=== PATIENT | male | born 1985 | race Caucasian/White ===

== ENCOUNTER 2016-08-30 12:51 | Emergency (ER) | payer MEDICAID ==
[~2016-08-30] VITALS: Ht 182.9 cm; Wt 88.5 kg
[2016-08-30 17:06] VITALS: BP 130/82
[2016-08-30] MEDS ORDERED: KETOROLAC TROMETH 60MG/2ML VIAL IM ONE (17:45)
== END 2016-08-30 18:23 | disposition home or self-care (01) ==
LOC: ER 12:55
DX: D49.6 Neoplasm of unspecified behavior of brain (principal)
CPT/HCPCS: 93926; 96372; 99284; J1885

== ENCOUNTER 2016-10-18 15:33 | Emergency (ER) | payer MEDICAID ==
[~2016-10-18] VITALS: Ht 182.9 cm; Wt 88.5 kg
[2016-10-18 16:15] VITALS: BP 120/82
== END 2016-10-18 17:01 | disposition home or self-care (01) ==
LOC: ER 15:35
DX: M25.861 Other specified joint disorders, right knee (principal)

== ENCOUNTER 2016-11-07 16:49 | Inpatient (IN) | payer MEDICAID ==
[~2016-11-07] VITALS: Ht 182.9 cm; Wt 86.6 kg
[2016-11-07 17:36] LABS: Basophils # (auto) 0 uL; Basophils % (auto) 0.5 % (0.0-2.0); Eosinophils # (auto) 0.1 uL; Eosinophils % (auto) 0.8 % (0.0-7.0); Hemoglobin 16.6 g/dL (13.5-17.5); Lymphocytes # (auto) 1.9 uL; Lymphocytes % (auto) 25.2 % (10.0-50.0); Mean Corpuscular Hemoglobin 30.6 pg (28.0-32.0); Mean Corpuscular Hgb Conc. 33.8 g/dL (32.0-36.0); Mean Corpuscular Volume 90.5 fL (80.0-100.0); Mean Platelet Volume 8.2 fL (7.4-10.4); Monocytes # (auto) 0.6 uL; Monocytes % (auto) 7.4 % (0.0-12.0); Neutrophils # (auto) 5.1 uL; Neutrophils % (auto) 66.1 % (37.0-80.0); Platelet Count (auto) 293 10^3/uL (140-450); Red Cell Distribution Width 13.3 % (11.6-16.0); White Blood Cell 7.7 10^3/uL (4.4-10.8)
[2016-11-07 17:55] LABS: Albumin 4.4 g/dL (3.4-5.0); BUN/Creatinine Ratio 19.7; Bilirubin, Total 1.5 mg/dL (0.2-1.0); Calcium 9.2 mg/dL (8.5-10.1); Potassium 3.6 mmol/L (3.5-5.1); Total Protein 7.8 g/dL (6.4-8.2)
[2016-11-07] MEDS ORDERED: ACETAMINOPHEN 500 MG TAB PO PRN (18:00)
[2016-11-07] MEDS ORDERED: LACTULOSE 20Gm/30ML SOLN PO PRN (18:00)
[2016-11-07] MEDS ORDERED: LORazepam 0.5 MG TAB PO PRN (18:00)
[2016-11-07] MEDS ORDERED: NITROGLYCERIN 0.4 MG SL TAB SL PRN (18:00)
[2016-11-07] MEDS ORDERED: TEMAZEPAM 15 MG CAP PO PRN (18:00)
[2016-11-07] MEDS ORDERED: MORPHINE SULF INJ 2 MG/ML SYRINGE 1ML IV PRN (18:00)
[2016-11-07] MEDS ORDERED: ENOXAPARIN SOD 100 MG/1 ML SYRINGE SC ONE (18:00)
[2016-11-07] MEDS ORDERED: PROCHLORPERAZINE EDISYLATE 5 MG/ML 2ML VIAL IV PRN (18:00)
[2016-11-07 18:11] LABS: INR 0.99 (0.9-1.15); Partial Thromboplastin Time 26.8 sec (22.64-33.71); Prothrombin Time 10.7 sec (9.37-12.3)
[2016-11-07] MEDS ORDERED: WARFARIN SODIUM 5 MG TAB PO ONE (18:53)
[2016-11-07 19:13] LABS: Urine Bilirubin Negative (Negative); Urine Blood Negative /uL (Negative); Urine Color Yellow (Yellow); Urine Glucose Normal (Normal); Urine Ketone Negative (Negative); Urine Nitrite Negative (Negative); Urine RBC 1 /hpf (0 - 3); Urine Squamous Epithelial Cell FEW /hpf (<5)
[2016-11-07] MEDS: HYDROcodone-ACET 5/325MG TAB PO PRN (19:36)
[2016-11-07 21:15] VITALS: BP 119/74
[2016-11-07] MEDS ORDERED: ENOXAPARIN SOD 80 MG/0.8ML SYRINGE SC SCH (22:00)
[2016-11-07] MEDS: ENOXAPARIN SOD 100 MG/1 ML SYRINGE SC SCH (22:08)
[2016-11-07] MEDS: MORPHINE SULF INJ 2 MG/ML SYRINGE 1ML IV PRN (22:08)
[2016-11-08] MEDS: MORPHINE SULF INJ 2 MG/ML SYRINGE 1ML IV PRN ×4 (04:25→18:17)
[2016-11-08 05:00] VITALS: BP 119/55
[2016-11-08 06:28] LABS: INR 0.99 (0.9-1.15); Partial Thromboplastin Time 33.4 sec (22.64-33.71); Prothrombin Time 10.7 sec (9.37-12.3)
[2016-11-08 06:30] LABS: Cholesterol 116 mg/dL (< 200); HDL Cholesterol 40 mg/dL (40-59); LDL Cholesterol 81 mg/dL (< 100); Triglycerides 50 mg/dL (< 150)
[2016-11-08] MEDS: ENOXAPARIN SOD 100 MG/1 ML SYRINGE SC SCH ×2 (08:50→21:15)
[2016-11-08] MEDS: NICOTINE 21MG/24 HR TOPICAL PATCH TD SCH (08:51)
[2016-11-08 09:00] VITALS: BP 117/76
[2016-11-08] MEDS: HYDROcodone-ACET 5/325MG TAB PO PRN (11:03)
[2016-11-08 13:00] VITALS: BP 127/71
[2016-11-08 16:46] VITALS: BP 124/77
[2016-11-08] MEDS ORDERED: WARFARIN SODIUM 2.5 MG TAB PO ONE (17:00)
[2016-11-09] MEDS: MORPHINE SULF INJ 2 MG/ML SYRINGE 1ML IV PRN ×4 (01:29→16:44)
[2016-11-09 05:00] VITALS: BP 120/74
[2016-11-09 06:53] LABS: INR 1.09 (0.9-1.15); Partial Thromboplastin Time 32.1 sec (22.64-33.71); Prothrombin Time 11.8 sec (9.37-12.3)
[2016-11-09 09:00] VITALS: BP 133/81
[2016-11-09] MEDS: ENOXAPARIN SOD 100 MG/1 ML SYRINGE SC SCH (09:35)
[2016-11-09] MEDS: HYDROcodone-ACET 5/325MG TAB PO PRN (09:40)
[2016-11-09] MEDS: NICOTINE 21MG/24 HR TOPICAL PATCH TD SCH (09:42)
[2016-11-09 12:36] VITALS: BP 133/80
[2016-11-09] MEDS ORDERED: RIVAROXABAN 15 MG TAB PO STA (15:54)
[2016-11-09 16:00] VITALS: BP 128/71
[2016-11-09 17:00] VITALS: BP 128/71
[2016-11-09] MEDS ORDERED: WARFARIN SODIUM 10 MG TAB PO ONE (17:00)
== END 2016-11-09 17:30 | disposition home or self-care (01) | DRG 197 ==
LOC: ER 16:51 → TELE 16:52 → TELE-WESTW 21:17
PROVIDERS: ADMIT Internal Medicine; ATTEND Internal Medicine
DX: I82.442 Acute embolism and thrombosis of left tibial vein (principal); D49.89 Neoplasm of unspecified behavior of other specified sites; F17.210 Nicotine dependence, cigarettes, uncomplicated; Z82.49 Family history of ischemic heart disease and other diseases of the circulatory system
CPT/HCPCS: 36415; 80053; 80061; 81001; 85025; 85379; 85610; 85730; 93971; 96372